=== PATIENT | female | born 1970 | race Caucasian/White ===

== ENCOUNTER 2024-02-09 12:46 | Outpatient (CLI) | payer BC, SELFPAY ==
--- NOTE | 2024-02-09 13:00 | MR_ITS ---
[facility] [address] [facility] [address] Phone:?[phone] Fax:?[phone] Referring Physician Information: Judah Neville M.D. [id number] [facility] [address] Phone:?[phone] Fax:?[phone] Patient:Arin Mccarthy D.O.B:?1970 Sex:?Female Phone:?[phone] [facility] MRN:?[id number] Exam Date:?02/09/2024 EXAM: MRI OF THE LEFT KNEE CLINICAL INFORMATION: The patient is a 53-year-old with left knee pain. Evaluate for internal derangement. Evaluate for osteoarthritis. PRIOR SURGERY: None reported. COMPARISON STUDIES: Comparison is made to prior radiographs dated 06/02/2023. TECHNICAL INFORMATION: Imaging was performed on a high-field, 1.5 Marlyn MR scanner. Sagittal proton-density and fat-suppressed proton-density imaging of the left knee was produced in addition to coronal proton-density and STIR imaging. Axial proton-density and fat-suppressed T2 imaging was also performed. FINDINGS: Articular/Extraarticular collections: Effusion: Mild to moderate. Popliteal cyst: Small to moderate, seen on sagittal series 6 image 11. Loose bodies: Low signal intensity debris within the popliteal cyst can be seen, in this bodies cannot be excluded. No well-defined intra-articular loose bodies are seen. Subcutaneous and extraarticular soft tissues: Nonspecific subcutaneous soft tissue edema and/or hemorrhage can be seen along the anterior and medial aspects of the left knee. Osseous structures: There is cortical irregularity and subcortical edema along the articular surfaces of the medial femoral condyle and medial tibial plateau, in keeping with meniscal tearing and chondral loss described below. Additional cortical irregularity and subcortical cystic changes can be seen involving the patella at the level of the patellar apex on axial series 4 image 10, in keeping with chondromalacia and chondral loss described below. No other bony abnormalities about the knee are seen. Ligamentous structures: ACL: The anterior cruciate ligament is abnormal in appearance. There is thickening of the ACL with indistinctness of its margins and increased intrasubstance signal intensity. The ACL has a lax appearance on sagittal images and the findings are in keeping with a moderate to severe incomplete ACL sprain. No transverse disruption of ACL fibers can be seen. PCL: Intact and normal in appearance. MCL: Intact and normal in appearance. LCL: Intact and normal in appearance. Posterolateral corner: Intact and normal in appearance. Posteromedial corner: No posteromedial corner soft tissue injury. Semimembranosus and pes anserine tendons demonstrate no tendinopathy or associated bursitis. Extensor mechanism/Patellar retinacular structures: Patellar tendon: Intact, without tendinopathy. Quadriceps tendon: Intact, without tendinopathy. Retinacula: The medial and lateral retinacula are intact. The medial patellofemoral ligament is intact. Medial compartment: Medial meniscus: The medial meniscus is abnormal in appearance. There is broad- based apical free edge and inferior surface tearing of the middle and posterior portions of the medial meniscus seen on coronal series 7 image 19 and on sagittal series 6 image 10. Additional radial tearing of the far posterior aspect of the medial meniscus can be seen near the meniscotibial attachment on coronal series 7 image 21 and on sagittal series 6 image 13. The area of medial meniscal tearing measures 25 mm in anteroposterior dimension and 25 mm in mediolateral dimension. The anterior horn appears intact. No parameniscal cyst formation is identified. Medial femoral condyle: Broad-based changes of grade II to III chondromalacia can be seen along the weightbearing surfaces of the medial femoral condyle. Underlying bony changes are seen. Medial tibial plateau: Grade II chondromalacia can be seen along the weightbearing surfaces of the medial tibial plateau. Lateral compartment: Lateral meniscus: Apical free edge tearing of the middle one third of the lateral meniscus can be seen on coronal series 7 image 19, measuring 2 to 3 mm in greatest dimension. The remainder of the lateral meniscus appears intact. No parameniscal cyst formation is identified. Lateral femoral condyle: No chondromalacia, chondral defect, or osteochondral abnormality. Lateral tibial plateau: No chondromalacia, chondral defect, or osteochondral abnormality. Patellofemoral compartment: Patella: A focal area of full-thickness or near full-thickness chondral loss can be seen involving the patellar apex on axial series 4 image 10, measuring 5 mm in greatest dimension. Underlying bony changes are seen. Trochlea: No chondromalacia, chondral defect, or osteochondral abnormality. Neurovascular: No definite neurovascular abnormalities are seen. CONCLUSION: 1. Broad-based, complex tearing of the middle and posterior portions of the medial meniscus. 2. Focal tear involving the apical free edge of the middle one third of the lateral meniscus. 3. 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 4. Moderate to severe incomplete ACL sprain. The ligamentous structures of the knee are otherwise intact. 5. Mild to moderate knee joint effusion and [id number] popliteal cyst. [facility] Electronically signed on 02/10/2024 8:11:00 AM by George Green M.D.
== END 2024-02-09 12:47 | disposition home or self-care (01) ==
LOC: MRI 12:47
PROVIDERS: PCP Family Medicine; Visit Provider Orthopaedic Surgery
DX: M25.562 Pain in left knee (principal); S83.232A Complex tear of medial meniscus, current injury, left knee, initial encounter; S83.282A Other tear of lateral meniscus, current injury, left knee, initial encounter; M22.42 Chondromalacia patellae, left knee; S83.512A Sprain of anterior cruciate ligament of left knee, initial encounter; M25.462 Effusion, left knee; M17.12 Unilateral primary osteoarthritis, left knee
CPT/HCPCS: 73721